=== PATIENT | female | born 2000 | race Caucasian/White ===

== ENCOUNTER 2021-12-02 16:13 | Emergency (ER) | payer BC ==
[~2021-12-02] VITALS: Ht 154.9 cm; Wt 55.6 kg
--- NOTE | 2021-12-02 16:24 | ED Abdominal Pain ---
General Chief Complaint: Abdominal/GI Problems Stated Complaint: ABD PAIN History of Present Illness Date Seen by Provider: Dec 02, 2021 Time Seen by Provider: 16:24 Initial Comments 21-year-old female is here with complaints of sore throat and subjective fever. The fever started yesterday and the sore throat began today morning. Patient initially told the front desk agent that she is here with abdominal pain because she was diagnosed a few days ago with an ovarian cyst, but she actually does not have any abdominal pain at this time and its not the reason she has come to the ER. Denies diarrhea, nausea, vomiting, dysuria, chest pain, SOB. No known sick contacts. Allergies and Home Medications Allergies Coded Allergies: No Known Drug Allergies (Unverified , 12/02/21) Patient Home Medication List Home Medication List Reviewed: Yes Review of Systems Review of Systems Constitutional: fever EENTM: Throat Pain Respiratory: No Symptoms Reported Cardiovascular: No Symptoms Reported Gastrointestinal: No Symptoms Reported Genitourinary: No Symptoms Reported Musculoskeletal: no symptoms reported Skin: no symptoms reported Psychiatric/Neurological: No Symptoms Reported Endocrine: No Symptoms Reported Hematologic/Lymphatic: No Symptoms Reported Physical Exam Vital Signs Vital Signs - First Documented 12/02/21 16:38 Temp 36.6 Pulse 109 Resp 16 B/P (MAP) 127/69 (88) Pulse Ox 96 O2 Delivery Room Air Capillary Refill : Height/Weight/BMI Height: '" Weight: lbs. oz. kg; BMI Method: General Appearance: WD/WN, no apparent distress HEENT: PERRL/EOMI, normal ENT inspection, TMs normal, pharynx normal Neck: non-tender, full range of motion, supple, normal inspection Respiratory: chest non-tender, lungs clear Cardiovascular: normal peripheral pulses Gastrointestinal: normal bowel sounds, non tender, soft Extremities: normal range of motion Back: normal inspection, no CVA tenderness, no vertebral tenderness Neurologic/Psychiatric: alert, normal mood/affect, oriented x 3 Skin: normal color Progress/Results/Core Measures Results/Orders Lab Results Laboratory Tests Test 12/02/21 16:21 12/02/21 16:25 Range/Units Urine Color YELLOW Urine Clarity SL CLOUDY Urine pH 6.0 5-9 Urine Specific [place] >=1.030 1.016-1.022 Urine Protein 1+ H NEGATIVE Urine Glucose (UA) NEGATIVE NEGATIVE Urine Ketones 2+ H NEGATIVE Urine Nitrite NEGATIVE NEGATIVE Urine Bilirubin 2+ H NEGATIVE Urine Urobilinogen 4.0 < = 1.0 MG/DL Urine Leukocyte Esterase NEGATIVE NEGATIVE Urine RBC (Auto) NEGATIVE NEGATIVE Urine RBC NONE /HPF Urine WBC 0-2 /HPF Urine Squamous Epithelial Cells 5-10 /HPF Urine Crystals NONE /LPF Urine Bacteria MODERATE H /HPF Urine Casts NONE /LPF Urine Mucus MODERATE H /LPF Urine Culture Indicated NO Urine Test NEGATIVE NEGATIVE Urine Opiates Screen NEGATIVE NEGATIVE Urine Oxycodone Screen NEGATIVE NEGATIVE Urine Methadone Screen NEGATIVE NEGATIVE Urine Propoxyphene Screen NEGATIVE NEGATIVE Urine Barbiturates Screen NEGATIVE NEGATIVE Ur Tricyclic Antidepressants Screen NEGATIVE NEGATIVE Urine Phencyclidine Screen NEGATIVE NEGATIVE Urine Amphetamines Screen NEGATIVE NEGATIVE Urine Methamphetamines Screen NEGATIVE NEGATIVE Urine Benzodiazepines Screen NEGATIVE NEGATIVE Urine Cocaine Screen NEGATIVE NEGATIVE Urine Cannabinoids Screen POSITIVE H NEGATIVE Influenza Type A (RT-PCR) Not Detected Not Detecte Influenza Type B (RT-PCR) Not Detected Not Detecte SARS-CoV-2 RNA (RT-PCR) Not Detected Not Detecte Group A Streptococcus Screen NEGATIVE NEGATIVE My Orders Orders - CRIS KHAN MD Drug Screen Stat (Urine) (12/02/21 16:25) Hcg,Qualitative Urine (12/02/21 16:25) Ua Culture If Indicated (12/02/21 16:25) Rapid Strep A Screen (12/02/21 16:29) Covid 19 Inhouse Test (12/02/21 16:30) Influenza A And B By Pcr (12/02/21 16:30) Vital Signs/I&O 12/02/21 16:38 Temp 36.6 Pulse 109 Resp 16 B/P (MAP) 127/69 (88) Pulse Ox 96 O2 Delivery Room Air Progress Progress Note : Progress Note 1. VIRAL SYNDROME: - COVID TEST/ FLU TEST/ RAPID STREP TEST: negative - UA/ UDS/ UCG: unremarkable - Reassurance, self-limited - Follow up with PCP as needed - Adequate hydration advised. -The patient was seen in the ED, and treated appropriately to presentation at a specific point in time. Patient is informed that there is a possibility that disease and illness can evolve and change in acuity rapidly or slowly after patient is discharged from the ER. Precautionary advice given to the patient for immediate return to ER if symptoms worsen or do not resolve, and to seek emergency care sooner rather than later. Pt also advised on the importance of PCP follow up and compliance with management and follow up plan with PCP and/or specialist, as this is part of the management plan. Pt verbally expressed understanding. Departure Impression Primary Impression: Viral syndrome Disposition: HOME, SELF-CARE Condition: Stable Departure-Patient Inst. Patient Instructions: Viral Syndrome (DC) Add. Discharge Instructions: - Follow up with PCP as needed - Adequate hydration advised. All discharge instructions reviewed with patient and/or family. Voiced understanding. Work/School Note: School/Childcare Release Date Seen in the Emergency Department: Dec 02, 2021 Return to School: Dec 04, 2021 CRIS KHAN MD Dec 02, 2021 16:24
[2021-12-02 16:49] LABS: CLARITY,URINE SL CLOUDY; COLOR,URINE YELLOW; GLUCOSE, URINE (UA) NEGATIVE (NEGATIVE); KETONES,URINE 2+ (NEGATIVE); LEUKOCYTE ESTERASE ,URINE NEGATIVE (NEGATIVE); NITRITE,URINE NEGATIVE (NEGATIVE); PROTEIN,URINE 1+ (NEGATIVE)
[2021-12-02 17:07] LABS: BACTERIA,URINE MODERATE /HPF; WBC,URINE 0-2 /HPF
[2021-12-02 17:08] LABS: HCG,QUALITATIVE URINE NEGATIVE (NEGATIVE)
[2021-12-02 17:09] LABS: AMPHETAMINE SCREEN, URINE NEGATIVE (NEGATIVE); BARBITURATE SCREEN URINE NEGATIVE (NEGATIVE); BENZODIAZEPINES SCREEN URINE NEGATIVE (NEGATIVE); CANNABINOID SCREEN, URINE POSITIVE (NEGATIVE); COCAINE SCREEN URINE NEGATIVE (NEGATIVE); METHADONE STAT NEGATIVE (NEGATIVE); OPIATE SCREEN URINE NEGATIVE (NEGATIVE); OXYCODONE STAT NEGATIVE (NEGATIVE); PROPOXYPHENE STAT NEGATIVE (NEGATIVE); TRICYCLIC ANTIDEPRESSANTS SCRE NEGATIVE (NEGATIVE)
[2021-12-02 17:15] LABS: BILIRUBIN,URINE 2+ (NEGATIVE)
[2021-12-02 17:34] VITALS: BP 127/69
== END 2021-12-02 17:33 | disposition home or self-care (01) ==
LOC: ER FS 16:18
DX: B34.9 Viral infection, unspecified (principal); Z20.822 Contact with and (suspected) exposure to COVID-19; Z28.310 Unvaccinated for COVID-19
CPT/HCPCS: 80306; 81000; 84703; 87430; 87636; 99283